=== PATIENT | male | born 1975 | race Two or more races ===

== ENCOUNTER 2017-04-08 09:38 | Emergency (ER) | payer OTHER ==
[~2017-04-08] VITALS: Ht 180.3 cm; Wt 93.4 kg
[2017-04-08 11:37] LABS: Basophils # (auto) 0 uL; Eosinophils # (auto) 0.3 uL; Eosinophils % (auto) 7.7 % (0.0-7.0); Lymphocytes # (auto) 1.4 uL; Monocytes # (auto) 0.3 uL; Neutrophils # (auto) 1.4 uL
[2017-04-08 11:40] LABS: Basophils % (auto) 0.4 % (0.0-2.0); Hemoglobin 12.5 g/dL (13.5-17.5); Mean Corpuscular Hemoglobin 24.2 pg (28.0-32.0); Mean Corpuscular Hgb Conc. 32.1 g/dL (32.0-36.0); Mean Corpuscular Volume 75.4 fL (80.0-100.0); Mean Platelet Volume 10.5 fL (6.9-10.8); Monocytes % (auto) 7.7 % (0.0-12.0); Neutrophils % (auto) 43.2 % (37.0-80.0); Nucleated Red Blood Cells % 0.3 %; Platelet Count (auto) 99 10^3/uL (140-450); Red Cell Distribution Width 13.9 % (11.8-14.3); White Blood Cell 3.3 10^3/uL (4.4-10.8)
[2017-04-08 12:04] LABS: Albumin 3.9 g/dL (3.4-5.0); Alkaline Phosphatase 54 U/L (45-117); Anion Gap 5 (5-15); Aspartate Aminotransferase 17 U/L (15-37); BUN/Creatinine Ratio 8.3; Bilirubin, Total 0.4 mg/dL (0.2-1.0); Blood Urea Nitrogen 9 mg/dL (7-18); Calcium 8.7 mg/dL (8.5-10.1); Carbon Dioxide 28 mmol/L (21-32); Chloride 105 mmol/L (98-107); GFR African American 96 mL/min; GFR Non-African American 80 mL/min; Glucose 81 mg/dL (74-106); Magnesium 2.3 mg/dL (1.6-2.6); Potassium 4.1 mmol/L (3.5-5.1); Sodium 138 mmol/L (136-145); Total Protein 7.8 g/dL (6.4-8.2)
[2017-04-08 12:58] VITALS: BP 137/65
== END 2017-04-08 13:07 | disposition home or self-care (01) ==
LOC: ER 09:38
DX: R07.89 Other chest pain (principal); K29.00 Acute gastritis without bleeding; K21.9 Gastro-esophageal reflux disease without esophagitis
CPT/HCPCS: 36415; 71020; 80053; 83735; 84484; 85025; 93005